=== PATIENT | male | born 1980 | race Two or more races ===

== ENCOUNTER 2024-11-17 11:42 | Emergency (ER) | payer MEDICAID, OTHER ==
[2024-11-17] MEDS ORDERED: IBU600T PO (15:22)
[2024-11-17] MEDS ORDERED: CYCL-839 PO (16:57)
== END 2024-11-17 12:26 | disposition left against medical advice (07) ==
LOC: ER 11:42
DX: M54.9 Dorsalgia, unspecified (principal); Z53.21 Procedure and treatment not carried out due to patient leaving prior to being seen by health care provider

== ENCOUNTER 2024-11-17 14:34 | Emergency (ER) | payer MEDICAID ==
[~2024-11-17] VITALS: Ht 182.9 cm; Wt 107.8 kg
--- NOTE | 2024-11-17 14:51 | ED.PDOC ---
History of Present Illness HPI Comments 43-year-old male presents to the ER with a prior medical history of back pain in the chief complaint of back pain. Patient reports on having lower back pain which has flared up from before, and has a possibility of a slipped disc. Patient notes on has been having severe pain. Denies chills, N/V/D, SOB, CP. Time Seen by MD: 14:50 Reviewed Notes: Nurses Notes, Medications, Allergies Allergies: Coded Allergies: NO KNOWN ALLERGIES (Unverified , 11/17/24) Home Meds Active Scripts Ibuprofen Micronized (MOTRIN TABLET) 600 Mg Tb, 600 MG PO TID PRN for 5 Days, #15 TAB *Black box warning-NSAIDS can increase risk of [place] & hypertension, GI irritation, ulceration, bleed, perferation. Do not use post cardiac surgery. Use short duration/lowest effective dose. Prov:JANAE SWANN MD 11/17/24 Information Source: Patient Severity: Moderate Timing: Came on: Gradually Duration: Since onset Prehospital treatment: None Past Medical History Past Medical History (Other): Chronic back pain Surgical History: Denies all surgeries Family History Family History: Reviewed,noncontributory to illness, Unknown Social History Smoker: Non-Smoker Alcohol: Denies ETOH Use Drugs: Denies Drug Use Lives In: Home Constitutional: denies: chills, diaphoresis, fatigue, fever, malaise, sweats, weakness, others EENTM: denies: blurred vision, double vision, ear bleeding, ear discharge, ear drainage, ear pain, ear ringing, eye pain, eye redness, hearing loss, mouth pain, mouth swelling, nasal discharge, nose bleeding, nose congestion, nose pain, photophobia, tearing, throat pain, throat swelling, voice changes, others Respiratory: denies: cough, hemoptysis, orthopnea, SOB at rest, shortness of breath, SOB with excertion, stridor, wheezing, others Cardiovascular: denies: chest pain, dizzy spells, diaphoresis, Dyspnea on exertion, edema, irregular heart beat, left arm pain, lightheadedness, palpitations, PND, syncope, others Gastrointestinal: denies: abdomen distended, abdominal pain, blood streaked bowels, constipated, diarrhea, dysphagia, difficulty swallowing, hematemesis, melena, nausea, poor appetite, poor fluid intake, rectal bleeding, rectal pain, vomiting, others Genitourinary: denies: burning, dysuria, flank pain, frequency, hematuria, incontinence, penile discharge, penile sore, pain, testicle pain, testicle swelling, urgency, others Neurological: denies: dizziness, fainting, headache, left sided numbness, left sided weakness, numbness, paresthesia, pre-existing deficit, right sided numbness, right sided weakness, seizure, speech problems, tingling, tremors, weakness, others Musculoskeletal: reports: back pain; denies: gout, joint pain, joint swelling, muscle pain, muscle stiffness, neck pain, others Integumetry: denies: bruises, change in color, change in hair/nails, dryness, laceration, lesions, lumps, rash, wounds, others Allergic/Immunocompromised: denies: Difficulty Healing, Frequent Infections, Hives, Itching, others Hematologic/Lymphatic: denies: anemia, blood clots, easy bleeding, easy bruising, swollen glands, others Endocrine: denies: excessive hunger, excessive sweating, excessive thirst, excessive urination, flushing, intolerance to cold, intolerance to heat, unexp lained weight gain, unexplained weight loss, others Psychiatric: denies: anxiety, bipolar disorder, depression, hopeless, panic disorder, schizophrenia, sleepless, suicidal, others All Other Systems: Reviewed and Negative Physical Exam General Appearance: Moderate Distress, Normal HEENT: Normal ENT Inspection, Pharynx Normal, TMs Normal Neck: Full Range of Motion, Non-Tender, Normal, Normal Inspection Respiratory: Chest Non-Tender, Lungs Clear, No Accessory Muscle Use, No Respiratory Distress, Normal Breath Sounds Cardiovascular: No Edema, No JVD, No Murmur, No Gallop, Normal Peripheral Pulses, Regular Rate/Rhythm Breast Exam: Deferred Gastrointestinal: No Organomegaly, Non Tender, No Pulsatile Mass, Normal Bowel Sounds, Soft Genitalia: Deferred Pelvic: Deferred Rectal: Deferred Extremities: No calf tenderness, Normal capillary refill, Normal inspection, Normal range of motion, Non-tender, No pedal edema Musculoskeletal : Apperance: Normal Neurologic: Alert, tobacco buyer II-XII nml as Tested, No Motor Deficits, Normal Affect, Normal Mood, No Sensory Deficits Cerebellar Function: Normal Reflexes: Normal Skin: Dry, Normal Color, Warm Peripheral Pulses: 3+ Radial (R), 3+ Radial (L) Lymphatic: No Adenopathy Was a procedure done? Was a procedure done?: No Differential Dx Considerations may include: Chronic back pain Degenerative disc disease X-Ray, Labs, Meds, VS Vital Signs Date Time Temp Pulse Resp B/P (MAP) Pulse Ox O2 Delivery O2 Flow Rate FiO2 11/17/24 16:26 69 20 96 Room Air* 0 21 11/17/24 14:50 98.1 72 18 143/79 (100) 98 98.1 Current Medications Medications (Trade) Dose Ordered Sig/Dre Route Start Time Stop Time Status Last Admin Ketorolac Tromethamine (Toradol Injection) 60 mg ONCE ONCE IM 11/17/24 15:15 11/17/24 15:16 DC 11/17/24 16:16 Acetaminophen/ Hydrocodone Bitart ([place] 10/325MG Tab) 1 tab ONCE ONCE PO 11/17/24 15:15 11/17/24 15:16 DC 11/17/24 16:16 Patient alert. Complaining of back pain. Vitals stable. Answering questions. No sign of any recent trauma. Explained to the patient that he will need outpatient MRI. X-ray of the lumbar spine does not show any acute process. Was given prescription of Motrin. Was told to follow up with his primary care physician. Was told to come back if there is any problem. Time of 1ST Reevaluation: 15:20 Reevaluation 1ST: Improved Patient Education/Counseling: Diagnosis, Treatment, Prognosis Family Education/Counseling: No Family Present SEPSIS Sepsis Screen Physician Orders Lumbar Spine 3 View (11/17/24 15:06) Vital Signs Date Time Temp Pulse Resp B/P (MAP) Pulse Ox O2 Delivery O2 Flow Rate FiO2 11/17/24 16:26 69 20 96 Room Air* 0 21 11/17/24 14:50 98.1 72 18 143/79 (100) 98 98.1 Medications Medications Dose Ordered Sig/Dre Route Start Time Stop Time Status Last Admin Dose Admin Acetaminophen/ Hydrocodone Bitart 1 tab ONCE ONCE PO 11/17/24 15:15 11/17/24 15:16 DC 11/17/24 16:16 Ketorolac Tromethamine 60 mg ONCE ONCE IM 11/17/24 15:15 11/17/24 15:16 DC 11/17/24 16:16 Departure 1 Departure Time of Disposition: 15:20 Impression: Primary Impression: Degenerative disc disease Qualified Codes: M51.369 - Other intervertebral disc degeneration, lumbar region without mention of lumbar back pain or lower extremity pain Disposition: HOME / SELF CARE / HOMELESS Condition: Good e-Prescriptions Cyclobenzaprine Hcl (Cyclobenzaprine Hcl) 10 Mg Tab 10 MG PO DAILY for 5 Days, #5 TAB Prov: JANAE SWANN MD 11/17/24 Ibuprofen Micronized (MOTRIN TABLET) 600 Mg Tb 600 MG PO TID PRN for 5 Days, #15 TAB *Black box warning-NSAIDS can increase risk of [place] & hypertension, GI irritation, ulceration, bleed, perferation. Do not use post cardiac surgery. Use short duration/lowest effective dose. Prov: JANAE SWANN MD 11/17/24 Discharged With: Self Critical Care Note Critical Care Time?: No Stability Stability form required: No Heart Score Heart Score: Heart Score Response (Comments) Value History N/A 0 EKG N/A 0 Age N/A 0 Risk Factors N/A 0 Troponin N/A 0 Total 0 I personally scribed for JANAE SWANN MD ([email or web address]) on 11/17/24 at 14:51. Electronically submitted by Cristobal Cohn ([email or web address]). JANAE SWANN MD Nov 17, 2024 14:51
[2024-11-17] MEDS ORDERED: IBU600T PO (15:22)
--- NOTE | 2024-11-17 15:46 | DVH ---
CLINICAL INDICATION: pain TECHNIQUE: 3 radiographic views of the lumbar spine were obtained. Comparison: None FINDINGS/IMPRESSION: 5 [id number] lumbar-type vertebrae. Mild straightening of the lumbar lordosis. The vertebral deanne dy heights are maintained. Multilevel minimal degenerative changes of the lumbar spine. Moderate abdulkadir unt of fecal material within the colon.
[2024-11-17] MEDS: HYDROcodone-ACET 10/325MG TAB PO ONE (16:16)
[2024-11-17] MEDS: KETOROLAC TROMETH 60MG/2ML VIAL IM ONE (16:16)
[2024-11-17 16:26] VITALS: PULSE 69; RESP 20; O2SAT 96
[2024-11-17] MEDS ORDERED: CYCL-839 PO (16:57)
[2024-11-17 17:22] VITALS: BP 123/67; PULSE 58; RESP 16; TEMP 97.9; O2SAT 98
== END 2024-11-17 20:12 | disposition home or self-care (01) ==
LOC: ER 14:34
DX: M51.360 Other intervertebral disc degeneration, lumbar region with discogenic back pain only (principal); G89.29 Other chronic pain; Z79.899 Other long term (current) drug therapy
CPT/HCPCS: 72100; 96372; 99283; J1885